=== PATIENT | male | born 2000 | race Asian ===

== ENCOUNTER 2022-04-20 21:55 | Emergency (ER) | payer OTHER ==
[~2022-04-20] VITALS: Ht 177.8 cm; Wt 85.5 kg
[2022-04-20 23:20] LABS: CHLORIDE 104 mEq/L (98-107)
[2022-04-20 23:28] LABS: ETHANOL BLOOD < 10 mg/dL
[2022-04-20 23:29] LABS: BASOPHILS % 0.4 % (0.0-2.0); EOSINOPHILS % 0.6 % (0.0-5.0); HEMATOCRIT. 42.4 % (42.0-52.0); HEMOGLOBIN. 14.5 g/dL (14.0-18.0); LYMPHOCYTES % 31.7 % (20.0-50.0); MEAN CORPUSCULAR HEMOGLOBIN 31.4 pg (28.0-32.0); MEAN CORPUSCULAR VOLUME 92.1 fL (80.0-94.0); MEAN PLATELET VOLUME 7.2 fl (7.4-10.4); MONOCYTES % 4.9 % (2.0-8.0); NEUTROPHILS % 62.4 % (40.0-76.0); PLATELET 319 x1000/uL (130-400); RED CELL DISTRIBUTION WIDTH 11.5 % (11.6-14.6)
[2022-04-21] MEDS ORDERED: LEVETIRACETAM 1000MG PREMIX 100 ML IV ONE (01:30)
[2022-04-21] MEDS ORDERED: KEPP500 MT (04:33)
[2022-04-21 05:00] VITALS: BP 100/50
== END 2022-04-21 05:15 | disposition home or self-care (01) ==
LOC: ER 21:55
DX: G40.909 Epilepsy, unspecified, not intractable, without status epilepticus (principal); F32.A Depression, unspecified
CPT/HCPCS: 36415; 70450; 80053; 80320; 85025; 96365; 99285; J1953; G0480